=== PATIENT | male | born 1965 | race Caucasian/White ===

== ENCOUNTER 2018-05-15 11:42 | Day surgery (SDC) | payer OTHER ==
[2014-08-19 14:04] VITALS: BMI 26.8
[~2018-05-15 11:42] MED LIST: HYDROCODONE-APA1 TAB PO; PERCOCET 10/3251 TA1 PO; ZOFRAN ODT4 MG/UDTAB PO
[2018-05-15 12:51] LABS: HEMOGLOBIN 14.6 g/dL (13.5-17.5); MCH 31.9 pg (26.0-34.0); MCHC 34.8 g/dL (31.0-37.0); MCV 91.9 fL (80.0-100.0); MEAN PLATELET VOLUME 10.8 fL (7.4-10.4); RBC 4.57 10x6/uL (4.20-6.10); RDW 12.8 % (11.5-14.5); WBC 11.5 10x3/uL (4.8-10.8)
[2018-05-15] MEDS ORDERED: IBUPROFEN200 MG PO (13:29)
== END 2018-05-15 14:16 | disposition home or self-care (01) ==
LOC: D.OPS 11:42
PROVIDERS: Anesthesiology
DX: Z12.11 Encounter for screening for malignant neoplasm of colon (principal); Z53.09 Procedure and treatment not carried out because of other contraindication; R50.9 Fever, unspecified; J02.9 Acute pharyngitis, unspecified

== ENCOUNTER → 2018-07-17 06:34 | Day surgery (SDC) | payer OTHER ==
[~2018-07-17] VITALS: Ht 190.5 cm; Wt 98.2 kg
[~2018-07-17 06:34] MED LIST changes: +HYDROCODON-ACE1 EA10 PO; +IBUPROFEN200 MG PO
[2018-07-17 08:09] VITALS: Ht 190.5 cm; Wt 98.2 kg
--- NOTE | 2018-07-17 09:49 | NUR ---
0947 PT AAOX3. HAS SPOKEN WITH DR. BRADLEY. IV DC'D. CATHETER INTACT. NO BLEEDING. BANDAID APPLIED.
--- NOTE | 2018-07-18 17:10 | OP ---
PATIENT NAME: MILENA RODRIGUEZ MEDICAL RECORD: [id number] :65 LOCATION:D.OPS ADMISSION DATE: SURGEON: TERRELL BRADLEY MD DATE OF OPERATION: 07/17/2018 PREOPERATIVE DIAGNOSIS: Desires screening colonoscopy. POSTOPERATIVE DIAGNOSIS: Desires screening colonoscopy. PROCEDURE: Total colonoscopy to cecum. SURGEON: Terrell Bradley MD GOLF CART ATTENDANT: None. BLOOD LOSS: Minimal. ANESTHESIA: IV sedation. COMPLICATIONS: None. The risks, possible complications, alternatives to the procedure were explained to the patient. A consent form was signed. ENDOSCOPIC COURSE: The patient was conveyed to the endoscopy suite electively on 07/17/2018. IV sedation was induced by the anesthesia staff. The patient was placed in the Esquivel position. A digital rectal examination was performed. The prostate was symmetric and without nodules. A colonoscope was inserted through the anus. It was easily advanced to the cecum. I intubated the ileum, which appeared normal. The prep was good. I slowly withdrew the endoscope. A combination of normal imaging and narrow band imaging were utilized. I dragged the folds. The pullback was greater than a 14-minute pullback. A retroflexed view was obtained in the rectum, which revealed enlarged internal hemorrhoids. I then unretroflexed the scope and removed it under direct vision. The patient was again conveyed back to his outpatient room. He has been having some hemorrhoidal difficulties and it sounds as though these are mainly external hemorrhoidal problems, but he does not want a hemorrhoid procedure at this time. His next colonoscopy can be in 10 years unless he develops new symptoms such as bleeding. TRANSINT:[id number] Voice Confirmation ID: [id number] DOCUMENT ID: [id number] TERRELL BRADLEY MD at 1710 CC: FRANCO WYATT DO [id number] DICTATION DATE: 07/17/18 0947 IRON MOLDER HELPER: 07/17/18 1019 [facility] 07/17/18 [facility] [address] [place] [address]
--- NOTE | 2018-07-18 17:10 | HP ---
PATIENT: MILENA RODRIGUEZ MEDICAL RECORD: [id number] ACCOUNT: [id number] LOCATION:[facility] : 65 ADMISSION DATE: 07/17/18 PCP: FRANCO WYATT DO HISTORY AND PHYSICAL EXAMINATION CHIEF COMPLAINT: Here for screening colonoscopy. HISTORY OF PRESENT ILLNESS: The patient is here for screening colonoscopy. He has never had a colonoscopy in the past. SOCIAL HISTORY: Smoker. PAST MEDICAL AND SURGICAL HISTORY: Appendectomy, history of left leg surgery, history of right carpal tunnel release, history of fracture of right ribs. ALLERGIES: No known drug allergies. HOME MEDICINES: Shepherd, Augmentin as well as methylprednisolone. PHYSICAL EXAMINATION: GENERAL: The patient does not appear acutely ill. He does not appear chronically ill. VITAL SIGNS: Reviewed. EARS: External ears appear normal. EYES: Extraocular movements are intact. NECK: Trachea is midline. CHEST: No intercostal retractions. PULMONARY: Nonlabored. IMPRESSION: Here for screening colonoscopy. PLAN: Screening colonoscopy. TRANSINT:[id number] Voice Confirmation ID: [id number] DOCUMENT ID: [id number] CHITRA BRADLEY MD at 1710 CC: FRANCO WYATT DO [id number] DICTATION DATE: 07/17/18 0849 PRINCIPAL MILITARY ANALYST: 07/17/18 0909 [facility] 07/17/18 [facility] [address] [place] [address]
== END | disposition home or self-care (01) ==
LOC: D.OPS 06:34
PROVIDERS: ATTEND Surgery
DX: Z12.11 Encounter for screening for malignant neoplasm of colon (principal)